=== PATIENT | female | born 1985 | race African-American/Black ===

== ENCOUNTER 2017-03-11 00:31 | Emergency (ER) | payer MEDICAID ==
[2017-03-11 00:37] VITALS: BP 112/73
[2017-03-11] MEDS ORDERED: ONDANSETRON 4 MG TAB.RAPDIS PO ONE (01:10)
[2017-03-11] MEDS ORDERED: ONDANSETRON ODT 4 MG TAB (6 TAB/ER DISP) PO PRN (01:10)
--- NOTE | 2017-03-11 01:14 | ER Document Report ---
ED General - General Chief Complaint: Flu Symptoms Stated Complaint: FLU LIKE SYMPTOMS Time Seen by Provider: 03/11/17 00:55 TRAVEL OUTSIDE OF THE [place] IN LAST 30 DAYS: No - HPI Patient complains to provider of: Nausea myalgias feeling hot and cold Notes: Patient coming in for the above-stated symptoms flulike symptoms ongoing for the past 3 days. Patient states no sick contacts. Patient also states she is having diarrhea. Patient denies getting a flu shot this year. Patient is shivering rocking back and forth however does have a conversation with family at bedside and is laughing. Patient looks to be no obvious distress. Denies fevers at home - Related Data Allergies/Adverse Reactions: aspirin Allergy (Verified 03/11/17 00:39) Past Medical History - Social History Smoking Status: Unknown if Ever Smoked Family History: Reviewed & Not Pertinent Patient has suicidal ideation: No Patient has homicidal ideation: No Renal/ Medical History: Denies: Hx Peritoneal Dialysis Review of Systems - Review of Systems Constitutional: Chills EENT: No symptoms reported Cardiovascular: No symptoms reported Respiratory: No symptoms reported Gastrointestinal: Diarrhea, Nausea, Vomiting Genitourinary: No symptoms reported Female Genitourinary: No symptoms reported Musculoskeletal: Muscle pain Skin: No symptoms reported Hematologic/Lymphatic: No symptoms reported Neurological/Psychological: No symptoms reported -: Yes All other systems reviewed and negative Physical Exam - Vital signs Vitals: Temp Pulse Resp BP Pulse Ox 97.8 F 80 18 112/73 100 03/11/17 00:33 03/11/17 00:33 03/11/17 00:33 03/11/17 00:33 03/11/17 00:33 Interpretation: Normal - General General appearance: Appears well, Alert - HEENT Head: Normocephalic, Atraumatic Eyes: Normal Pupils: PERRL - Respiratory Respiratory status: No respiratory distress Chest status: Nontender Breath sounds: Normal Chest palpation: Normal - Cardiovascular Rhythm: Regular Heart sounds: Normal auscultation Murmur: No - Abdominal Inspection: Normal Distension: No distension Bowel sounds: Normal Tenderness: Nontender Organomegaly: No organomegaly - Back Back: Normal, Nontender - Extremities General upper extremity: Normal inspection, Nontender, Normal color, Normal ROM , Normal temperature General lower extremity: Normal inspection, Nontender, Normal color, Normal ROM , Normal temperature, Normal weight bearing. No: Viridiana's sign - Neurological Neuro grossly intact: Yes Cognition: Normal Orientation: AAOx4 [place] Coma Scale Eye Opening: Spontaneous [place] Coma Scale Verbal: Oriented [place] Coma Scale Motor: Obeys Commands [place] Coma Scale Total: 15 Speech: Normal Motor strength normal: LUE, RUE, LLE, RLE Sensory: Normal - Psychological Associated symptoms: Normal affect, Normal mood - Skin Skin Temperature: Warm Skin Moisture: Dry Skin Color: Normal Course - Re-evaluation Re-evalutation: 03/11/17 02:25 Patient presents with viral-like illness in no obvious distress. Patient was given symptomatic treatment patient was encouraged follow-up primary care physician return to ER symptoms worsen. - Vital Signs Vital signs: Temp Pulse Resp BP Pulse Ox 97.8 F 80 18 112/73 100 03/11/17 00:33 03/11/17 00:33 03/11/17 00:33 03/11/17 00:33 03/11/17 00:33 Discharge - Discharge Clinical Impression: Flu-like symptoms Disposition: HOME, SELF-CARE Instructions: Gastritis ([facility]), Gastroenteritis (adult) ([facility]), Influenza ([facility]) [id number] Additional Instructions: Your symptoms are consistent with a viral illness possibly influenza. Take Tylenol Motrin as needed for pain and fever control. I recommend starting omeprazole for your gastritis. Take Zofran and Phenergan for your nausea. Clear liquid diet for the next 1224 hrs. and advance as tolerated. Return to ER symptoms worsen. Follow-up with her primary care physician in 3-5 days. Prescriptions: Omeprazole 20 mg PO DAILY #30 capsule. Ondansetron [Zofran Odt] 4 mg PO Q6 PRN #30 tab.rapdis PRN Reason: For Nausea/Vomiting Promethazine HCl [Phenergan 25 mg Tablet] 25 mg PO Q6 #30 tablet Forms: Return to Work
== END 2017-03-11 01:21 | disposition home or self-care (01) ==
LOC: ER 00:31
DX: M79.1 Myalgia (principal); R19.7 Diarrhea, unspecified; R11.0 Nausea; R68.83 Chills (without fever); R11.2 Nausea with vomiting, unspecified
CPT/HCPCS: 99283; S0119

== ENCOUNTER 2017-03-11 04:07 | Emergency (ER) | payer MEDICAID ==
[2017-03-11] MEDS ORDERED: NORMAL SALINE 1000 ML 1,000 ML IV ONE (05:17)
[2017-03-11] MEDS ORDERED: DIPHENHYDRAMINE HCL 50 MG/ML VIAL IV ONE (05:17)
--- NOTE | 2017-03-11 05:19 | ER Document Report ---
HPI - HPI Patient complains to provider of: Vomiting and diarrhea Onset: Other - 3 days Onset/Duration: Persistent Quality of pain: Achy Pain Level: 5 Context: Patient presents complaining of nausea vomiting diarrhea over the past 3 days. Patient states she is vomited once today but feels nauseated. Patient does complain of some abdominal cramping. Patient denies any urinary symptoms. Patient was here earlier today and given nausea medication. Patient states that shortly after leaving she became nauseated and vomited an additional time. Associated Symptoms: Diarrhea, Nausea, Vomiting. denies: Fever Exacerbated by: Denies Relieved by: Denies Similar symptoms previously: No Recently seen / treated by doctor: Yes - ROS ROS below otherwise negative: Yes Systems Reviewed and Negative: Yes All other systems reviewed and negative - CONSTITUTIONAL Constitutional: DENIES: Fever, Chills - CARDIOVASCULAR Cardiovascular: DENIES: Chest pain - RESPIRATORY Respiratory: DENIES: Trouble Breathing, Coughing - GASTROINTESTINAL Gastrointestinal: REPORTS: Abdominal Pain, Nausea, Patient vomiting, Diarrhea. DENIES: Black / Bloody Stools - URINARY Urinary: DENIES: Dysuria - REPRODUCTIVE Reproductive: DENIES: : - MUSCULOSKELETAL Musculoskeletal: DENIES: Back Pain - DERM Skin Color: Normal Skin Problems: None Past Medical History - General Information source: Patient - Social History Smoking Status: Current Every Day Smoker Frequency of alcohol use: None Drug Abuse: None Occupation: Sales, foodservice Lives with: Family Family History: Reviewed & Not Pertinent Renal/ Medical History: Denies: Hx Peritoneal Dialysis GI Medical History: Reports: Hx Gastritis Surgical Hx: Negative Vertical Provider Document - CONSTITUTIONAL Agree With Documented VS: Yes Exam Limitations: No Limitations General Appearance: WD/WN, No Apparent Distress Notes: Patient restless, pacing in room, states this helps with her nausea - INFECTION CONTROL TRAVEL OUTSIDE OF THE [place] IN LAST 30 DAYS: No - HEENT HEENT: Atraumatic, Normal ENT Exam, Normocephalic - NECK Neck: Normal Inspection, Supple - RESPIRATORY Respiratory: Breath Sounds Normal, No Respiratory Distress O2 Sat by Pulse Oximetry: 100 - CARDIOVASCULAR Cardiovascular: Regular Rate, Regular Rhythm, No Murmur - GI/ABDOMEN Gastrointestinal: Abdomen Soft, Abdomen Tender - LLQ, No Organomegaly, Normal Bowel Sounds - BACK Back: Normal Inspection. negative: CVA Tenderness-Right, CVA Tenderness-Left - MUSCULOSKELETAL/EXTREMETIES Musculoskeletal/Extremeties: DEIDRE, FROM - NEURO Level of Consciousness: Awake, Alert, Appropriate Motor/Sensory: No Motor Deficit - DERM Integumentary: Warm, Dry Course - Re-evaluation Re-evalutation: 03/11/17 06:37 IV fluids infusing, patient denies any nausea at this time. Patient reports that she is feeling much improved. 03/11/17 07:31 Patient sleeping, arouses easily to voice. Abdomen soft, nontender. No vomiting. Patient encouraged to get prescriptions that she was prescribed earlier this morning filled and take as directed. - Vital Signs Vital signs: Temp Pulse Resp BP Pulse Ox 97.9 F 63 18 143/115 H 100 03/11/17 04:12 03/11/17 04:12 03/11/17 04:12 03/11/17 04:12 03/11/17 04:12 - Laboratory Result Diagrams: 03/11/17 06:22 03/11/17 06:22 Laboratory results interpreted by me: 03/11/17 07:15 Labs- Entire Visit 03/11/17 03/11/17 03/11/17 06:22 06:22 06:22 WBC 7.8 RBC 3.97 Hgb 12.2 Hct 35.7 L MCV 90 MCH 30.7 MCHC 34.1 RDW 12.5 Plt Count 230 Seg Neutrophils % 79.7 H Lymphocytes % 15.3 Monocytes % 4.3 Eosinophils % 0.3 Basophils % 0.4 Absolute Neutrophils 6.2 Absolute Lymphocytes 1.2 Absolute Monocytes 0.3 Absolute Eosinophils 0.0 Absolute Basophils 0.0 Sodium 142.9 Potassium 3.9 Chloride 109 H Carbon Dioxide 23 Anion Gap 11 BUN 10 Creatinine 0.82 Est GFR ( Amer) > 60 Est GFR (Non-Af Amer) > 60 Glucose 115 H Calcium 9.7 Total Bilirubin 0.8 Direct Bilirubin 0.2 Neonat Total Bilirubin Not Reportable Neonat Direct Bilirubin Not Reportable Neonat Indirect Bili Not Reportable AST 21 ALT 28 Alkaline Phosphatase 56 Total Protein 7.1 Albumin 4.4 Serum HCG, Qual NEGATIVE Urine Color Urine Appearance Urine pH Ur Specific [place] Urine Protein Urine Glucose (UA) Urine Ketones Urine Blood Urine Nitrite Urine Bilirubin Urine Urobilinogen Ur Leukocyte Esterase Urine WBC (Auto) Urine RBC (Auto) Urine Bacteria (Auto) Squamous Epi Cells Auto Urine Ascorbic Acid 03/11/17 06:38 WBC RBC Hgb Hct MCV MCH MCHC RDW Plt Count Seg Neutrophils % Lymphocytes % Monocytes % Eosinophils % Basophils % Absolute Neutrophils Absolute Lymphocytes Absolute Monocytes Absolute Eosinophils Absolute Basophils Sodium Potassium Chloride Carbon Dioxide Anion Gap BUN Creatinine Est GFR ( Amer) Est GFR (Non-Af Amer) Glucose Calcium Total Bilirubin Direct Bilirubin Neonat Total Bilirubin Neonat Direct Bilirubin Neonat Indirect Bili AST ALT Alkaline Phosphatase Total Protein Albumin Serum HCG, Qual Urine Color YELLOW Urine Appearance CLEAR Urine pH 9.0 Ur Specific [place] 1.006 Urine Protein NEGATIVE Urine Glucose (UA) NEGATIVE Urine Ketones TRACE H Urine Blood NEGATIVE Urine Nitrite NEGATIVE Urine Bilirubin NEGATIVE Urine Urobilinogen NEGATIVE Ur Leukocyte Esterase NEGATIVE Urine WBC (Auto) 0 Urine RBC (Auto) 1 Urine Bacteria (Auto) TRACE Squamous Epi Cells Auto 3 Urine Ascorbic Acid NEGATIVE Discharge - Discharge Clinical Impression: Nausea vomiting and diarrhea Condition: Stable Disposition: HOME, SELF-CARE Additional Instructions: Return immediately for any new or worsening symptoms Followup with your primary care provider, call tomorrow to make a followup appointment VOMITING: Vomiting (or nausea without vomiting) can be caused by many other different problems. It can mean that something's wrong with the stomach, such as ulcers or inflammation or the intestinal tract, such as appendicitis. But it can also be a symptom of a problem that has nothing to do with the stomach or intestines. Vomiting is common with severe headaches, earaches, tonsillitis, and kidney infections, etc. We see it with pneumonia or heart attacks. Drugs can cause nausea and vomiting. Many abdominal problems cause vomiting; for example, gallstones, kidney stones, pancreatitis, and intestinal obstruction ( blocked bowels). In most cases, curing the vomiting depends on fixing the problem that caused it. For temporary relief, we may use an anti-nausea medicine. For home use, we can prescribe suppositories, chewable pills, pills that dissolve in the mouth, or liquid anti-nausea drugs. If the vomiting seems to be caused by a problem in the stomach, acid-suppressing drugs may be prescribed as well. It's important to avoid dehydration. Sip small amounts of clear liquids ( soft drinks, tea, broth, etc) . Try to take fluids frequently even if you are vomiting to prevent dehydration. Take increasing amounts of fluid and when liquids are being consumed successfully, advance to small amounts of bland food (toast, soups, mashed potatoes, etc.) until you are able to resume a regular diet. Avoid aspirin, tobacco, and alcohol. If the vomiting worsens, if the problem that's making you vomit worsens, or if there's evidence of bleeding in the stomach (such as black, tarry stool, or bloody or black vomit), you should return immediately. Also, return if abdominal pain worsens or becomes localized to one area or you develop high fever. Call your doctor if you aren't improved in 24 hours. DIARRHEA, NON-SPECIFIC: Diarrhea means frequent, watery stools. There are many causes. Any problem that keeps the intestinal tract from absorbing water from the stool can lead to diarrhea. A sudden new diarrhea problem is usually caused by a virus, food sensitivity, toxic bacteria, or drugs. In this case, we expect the problem to go away soon. Testing is done only if you seem seriously ill from the diarrhea. If you have chronic diarrhea, or diarrhea that keeps coming back, we need to find out why. Chronic diarrhea can be due to inflammation of the bowels such as Crohn's disease or ulcerative colitis, food sensitivity such as intolerance to lactose or wheat protein, irritable bowel syndrome, and other problems. If your diarrhea is a significant problem but it's not clear why you have it, we' ll refer you to a specialist for further testing. During an episode of diarrhea, drink small amounts (two to six ounces) of clear liquids (soft drinks, sport drinks, herb teas, broth, etc). Take fluids frequently to prevent dehydration. It's usually not a problem to take mild anti- diarrhea medication such as Kaopectate or Pepto-Bismol. As the diarrhea eases, advance to small amounts of bland food (mashed potato, toast) for 24 hours. Call the physician if blood appears in your vomit or stool, if vomiting lasts longer than 24 hours, if the abdominal pain worsens or becomes localized to one area, if you develop high fever, or if you become lightheaded and weak. VIRAL SYNDROME: The physician has diagnosed a viral infection. Viruses not only cause "colds," but can cause many different symptoms including generalized aching, fever, headache, cough, diarrhea, nausea, vomiting, and fatigue. The treatment, for the most part, is simply relief of symptoms. This means that antibiotics are usually not given. Rest, fluids, pain medications and, occasionally, medication for the specific symptoms that are most bothersome will be prescribed. Use good handwashing to avoid passing the virus to others. Shared toys should be cleaned with disinfectant. Clean the toilets, sinks, and counter surfaces in bathrooms. Launder clothing in hot water. Contact the physician if you develop any new or unusual symptoms such as severe headache, stiff neck, high fever, chest pain, productive cough, or shortness of breath. You should be rechecked if you don't see marked improvement within seven to 10 days. INTRAVENOUS (I V) FLUIDS: As part of your care today, you received intravenous (IV) fluids. IV fluids are administered to patients who are dehydrated or to those who have certain chemical (electrolyte) abnormalities that need correcting. ANTINAUSEA MEDICATION: You have been given a medication to suppress nausea and vomiting. This type of medication can be given as a shot, pill, or suppository. It will usually last for many hours. Pills and shots usually last six to eight hours. For the typical illness, only one or two doses of the medication may be necessary. Mild lightheadedness may occur. This type of medicine can cause drowsiness. Do not drive or operate dangerous machinery while under its influence. Do not mix with alcohol. See your doctor at once if you have muscle spasms or tightness, or uncontrollable motions (particularly of the neck, mouth, or jaw). Persistent vomiting or severe lightheadedness should also be evaluated by the physician. FOLLOW-UP CARE: If you have been referred to a physician for follow-up care, call the physician s office for an appointment as you were instructed or within the next two days. If you experience worsening or a significant change in your symptoms, notify the physician immediately or return to the Emergency Department at any time for re-evaluation. Forms: Return to Work Referrals: [facility] [Provider Group] - Follow up tomorrow
[2017-03-11 06:36] LABS: ABSOLUTE LYMPHOCYTES (AUTO) 1.2 10^3/uL (0.5-4.7); ABSOLUTE MONOCYTES (AUTO) 0.3 10^3/uL (0.1-1.4); ABSOLUTE NEUT (AUTO) 6.2 10^3/uL (1.7-8.2); BASOPHILS % (AUTO) 0.4 % (0-2); EOSINOPHILS % (AUTO) 0.3 % (0-6); HEMATOCRIT 35.7 % (36.0-47.0); HEMOGLOBIN 12.2 g/dL (12.0-15.5); LYMPHOCYTES % (AUTO) 15.3 % (13-45); MEAN CORPUSCULAR HEMOGLOBIN 30.7 pg (27.0-33.4); MEAN CORPUSCULAR HGB CONC 34.1 g/dL (32.0-36.0); MEAN CORPUSCULAR VOLUME 90 fl (80-97); MONOCYTES % (AUTO) 4.3 % (3-13); PLATELET COUNT 230 10^3/uL (150-450); RED BLOOD COUNT 3.97 10^6/uL (3.72-5.28); RED CELL DISTRIBUTION WIDTH 12.5 % (11.5-14.0); SEGMENTED NEUTROPHILS % (AUTO) 79.7 % (42-78); TOTAL CELLS COUNTED % (AUTO) 100 %; WHITE BLOOD COUNT 7.8 10^3/uL (4.0-10.5)
[2017-03-11 06:59] LABS: BLOOD UREA NITROGEN 10 mg/dL (7-20); CALCIUM 9.7 mg/dL (8.4-10.2); GLUCOSE 115 mg/dL (75-110)
[2017-03-11 07:00] LABS: ALANINE AMINOTRANSFERASE 28 U/L (9-52); ALBUMIN 4.4 g/dL (3.5-5.0); ALKALINE PHOSPHATASE 56 U/L (38-126); ANION GAP 11 (5-19); ASPARTATE AMINO TRANSFERASE 21 U/L (14-36); BILIRUBIN,DIRECT 0.2 mg/dL (0.0-0.4); BILIRUBIN,TOTAL 0.8 mg/dL (0.2-1.3); CARBON DIOXIDE 23 mmol/L (22-30); CHLORIDE 109 mmol/L (98-107); POTASSIUM 3.9 mmol/L (3.6-5.0); SODIUM 142.9 mmol/L (137-145); TOTAL PROTEIN 7.1 g/dL (6.3-8.2)
[2017-03-11 07:04] LABS: APPEARANCE,URINE CLEAR; BILIRUBIN,URINE NEGATIVE (NEGATIVE); COLOR,URINE YELLOW; GLUCOSE, URINE NEGATIVE (NEGATIVE); KETONES,URINE TRACE mg/dL (NEGATIVE); LEUKOCYTE ESTERASE,URINE NEGATIVE (NEGATIVE); NITRITE,URINE NEGATIVE (NEGATIVE); PROTEIN,URINE NEGATIVE (NEGATIVE); URINE SPECIFIC GRAVITY 1.006; UROBILINOGEN,URINE NEGATIVE mg/dL (<2.0)
[2017-03-11 07:51] VITALS: BP 95/53
== END 2017-03-11 07:51 | disposition home or self-care (01) ==
LOC: ER 04:07
DX: R11.2 Nausea with vomiting, unspecified (principal); R19.7 Diarrhea, unspecified; R10.9 Unspecified abdominal pain; R45.1 Restlessness and agitation; F17.200 Nicotine dependence, unspecified, uncomplicated; Z87.19 Personal history of other diseases of the digestive system
CPT/HCPCS: 99283; 96374; 36415; 84703; 85025; 80053; 81001; J1200; J7030

== ENCOUNTER 2017-05-29 06:48 | Emergency (ER) | payer MEDICAID ==
[2017-05-29] MEDS ORDERED: METOCLOPRAMIDE HCL 10 MG TABLET PO ONE (07:24)
[2017-05-29 07:58] LABS: ABSOLUTE EOSINOPHILS # (AUTO) 0.1 10^3/uL (0.0-0.6); ABSOLUTE LYMPHOCYTES (AUTO) 1.4 10^3/uL (0.5-4.7); ABSOLUTE MONOCYTES (AUTO) 0.5 10^3/uL (0.1-1.4); ABSOLUTE NEUT (AUTO) 8.2 10^3/uL (1.7-8.2); BASOPHILS % (AUTO) 0.4 % (0-2); EOSINOPHILS % (AUTO) 0.7 % (0-6); HEMATOCRIT 39.3 % (36.0-47.0); HEMOGLOBIN 13.3 g/dL (12.0-15.5); LYMPHOCYTES % (AUTO) 13.4 % (13-45); MEAN CORPUSCULAR HGB CONC 33.7 g/dL (32.0-36.0); MEAN CORPUSCULAR VOLUME 92 fl (80-97); PLATELET COUNT 212 10^3/uL (150-450); RED BLOOD COUNT 4.28 10^6/uL (3.72-5.28); RED CELL DISTRIBUTION WIDTH 13.6 % (11.5-14.0); SEGMENTED NEUTROPHILS % (AUTO) 80.5 % (42-78); TOTAL CELLS COUNTED % (AUTO) 100 %; WHITE BLOOD COUNT 10.2 10^3/uL (4.0-10.5)
[2017-05-29 08:05] LABS: APPEARANCE,URINE CLEAR; BILIRUBIN,URINE NEGATIVE (NEGATIVE); COLOR,URINE YELLOW; GLUCOSE, URINE NEGATIVE (NEGATIVE); KETONES,URINE 20 mg/dL (NEGATIVE); LEUKOCYTE ESTERASE,URINE NEGATIVE (NEGATIVE); NITRITE,URINE NEGATIVE (NEGATIVE); PROTEIN,URINE NEGATIVE (NEGATIVE); URINE SPECIFIC GRAVITY 1.019; UROBILINOGEN,URINE NEGATIVE mg/dL (<2.0)
[2017-05-29 08:35] LABS: ALANINE AMINOTRANSFERASE 38 U/L (9-52); ALBUMIN 4.2 g/dL (3.5-5.0); ALKALINE PHOSPHATASE 58 U/L (38-126); ANION GAP 7 (5-19); ASPARTATE AMINO TRANSFERASE 24 U/L (14-36); BILIRUBIN,DIRECT 0.1 mg/dL (0.0-0.4); BILIRUBIN,TOTAL 0.7 mg/dL (0.2-1.3); BLOOD UREA NITROGEN 9 mg/dL (7-20); CALCIUM 9.8 mg/dL (8.4-10.2); CARBON DIOXIDE 32 mmol/L (22-30); CHLORIDE 106 mmol/L (98-107); GLUCOSE 109 mg/dL (75-110); LIPASE 75.3 U/L (23-300); SODIUM 145.1 mmol/L (137-145); TOTAL PROTEIN 6.9 g/dL (6.3-8.2)
[2017-05-29 08:53] LABS: URINE AMPHETAMINES SCREEN NEGATIVE; URINE BARBITURATES SCREEN NEGATIVE; URINE BENZODIAZEPINES SCREEN NEGATIVE; URINE COCAINE SCREEN NEGATIVE; URINE MARIJUANA (THC) SCREEN UNCONFIRMED POSITIVE; URINE METHADONE SCREEN NEGATIVE; URINE PHENCYCLIDINE SCREEN NEGATIVE
--- NOTE | 2017-05-29 09:36 | ER Document Report ---
ED General - General Chief Complaint: Nausea Stated Complaint: NAUSEA Time Seen by Provider: 05/29/17 07:09 Mode of Arrival: Ambulatory Information source: Patient Notes: 31 yr old female presents with complaints of abd cramping, nausea vomiting and diarrhea. pt notes she had phenergan for nausea at home but didnt know if she should take it. notes symptoms just started, denies any fevers or chills. TRAVEL OUTSIDE OF THE [place] IN LAST 30 DAYS: No - HPI Onset: Just prior to arrival Onset/Duration: Sudden Quality of pain: Cramping Severity: Mild Pain Level: 1 Associated symptoms: Diarrhea, Nausea, Vomiting Exacerbated by: Denies Relieved by: Denies Similar symptoms previously: No Recently seen / treated by doctor: No - Related Data Allergies/Adverse Reactions: aspirin Allergy (Verified 03/11/17 00:39) Past Medical History - Social History Smoking Status: Current Every Day Smoker Cigarette use (# per day): Yes Chew tobacco use (# tins/day): No Smoking Education Provided: No Frequency of alcohol use: None Drug Abuse: Marijuana Family History: Reviewed & Not Pertinent Patient has suicidal ideation: No Patient has homicidal ideation: No Renal/ Medical History: Denies: Hx Peritoneal Dialysis GI Medical History: Reports: Hx Gastritis Past Surgical History: Reports: Hx Gynecologic Surgery - 3 D&Cs Review of Systems - Review of Systems Notes: REVIEW OF SYSTEMS: CONSTITUTIONAL : Denies fever, chills, or sweats. Denies recent illness. EENT: Denies eye, ear, throat, or mouth pain or symptoms. Denies nasal or sinus congestion or discharge. Denies throat, tongue, or mouth swelling or difficulty swallowing. CARDIOVASCULAR: Denies chest pain. Denies palpitations or racing or irregular heart beat. Denies ankle edema. RESPIRATORY: Denies cough, cold, or chest congestion. Denies shortness of breath, difficulty breathing, or wheezing. GASTROINTESTINAL: Admits to abdominal cramping nausea vomiting diarrhea GENITOURINARY: Denies difficulty urinating, painful urination, burning, frequency, blood in urine, or discharge. FEMALE GENITOURINARY: Denies vaginal bleeding, heavy or abnormal periods, irregular periods. Denies vaginal discharge or odor. MUSCULOSKELETAL: Denies back or neck pain or stiffness. Denies joint pain or swelling. SKIN: Denies rash, lesions or sores. HEMATOLOGIC : Denies easy bruising or bleeding. LYMPHATIC: Denies swollen, enlarged glands. NEUROLOGICAL: Denies confusion or altered mental status. Denies passing out or loss of consciousness. Denies dizziness or lightheadedness. Denies headache. Denies weakness or paralysis or loss of use of either side. Denies problems with gait or speech. Denies sensory loss, numbness, or tingling. Denies seizures. PSYCHIATRIC: Denies anxiety or stress. Denies depression, suicidal ideation, or homicidal ideation. ALL OTHER SYSTEMS REVIEWED AND NEGATIVE. PHYSICAL EXAMINATION: GENERAL: Well-appearing, well-nourished and in no acute distress. HEAD: Atraumatic, normocephalic. EYES: Pupils equal round and reactive to light, extraocular movements intact, conjunctiva are normal. ENT: Nares patent, oropharynx clear without exudates. Moist mucous membranes. NECK: Normal range of motion, supple without lymphadenopathy LUNGS: Breath sounds clear to auscultation bilaterally and equal. No wheezes rales or rhonchi. HEART: Regular rate and rhythm without murmurs ABDOMEN: Soft, nontender, nondistended abdomen. No guarding, no rebound. No masses appreciated. Female : deferred Musculoskeletal: Normal range of motion, no pitting or edema. No cyanosis. NEUROLOGICAL: Cranial nerves grossly intact. Normal speech, normal gait. Normal sensory, motor exams PSYCH: Normal mood, normal affect. SKIN: Warm, Dry, normal turgor, no rashes or lesions noted. Dictation was performed using [employer] voice recognition software Physical Exam - Vital signs Vitals: Temp Pulse Resp BP Pulse Ox 97.9 F 69 14 102/61 100 05/29/17 06:49 05/29/17 06:49 05/29/17 06:49 05/29/17 06:49 05/29/17 06:49 Course - Re-evaluation Re-evalutation: 05/29/17 11:29 Patient lab work noted no significant abnormality, she was given Reglan and on reevaluation is sleeping comfortably states her symptoms have completely resolved and she wishes to go home. Patient will be given a work excuse and has been given very strict return precautions After performing a Medical Screening Examination, I estimate there is LOW risk for ACUTE APPENDICITIS, BOWEL OBSTRUCTION, ACUTE CHOLECYSTITIS, PERFORATED DIVERTICULITIS, INCARCERATED HERNIA, PANCREATITIS, PELVIC INFLAMMATORY DISEASE, PERFORATED ULCER, ECTOPIC , or TUBO-OVARIAN ABSCESS, thus I consider the discharge disposition reasonable. Also, there is no evidence or peritonitis , sepsis, or toxicity. I have reevaluated this patient multiple times and no significant life threatening changes are noted. The patient and I have discussed the diagnosis and risks, and we agree with discharging home with close follow-up with the understanding that symptoms and presentations can change. We also discussed returning to the Emergency Department immediately if new or worsening symptoms occur. We have discussed the symptoms which are most concerning (e.g., bloody stool, fever, changing or worsening pain, vomiting) that necessitate immediate return. - Vital Signs Vital signs: Temp Pulse Resp BP Pulse Ox 98.4 F 55 L 18 96/56 L 99 05/29/17 09:39 05/29/17 09:39 05/29/17 09:39 05/29/17 09:39 05/29/17 09:39 - Laboratory Result Diagrams: 05/29/17 07:40 05/29/17 07:40 Laboratory results interpreted by me: 05/29/17 05/29/17 05/29/17 07:40 07:40 07:40 Seg Neutrophils % 80.5 H Sodium 145.1 H Carbon Dioxide 32 H Urine Ketones 20 H Discharge - Discharge Clinical Impression: Nausea vomiting and diarrhea Condition: Stable Disposition: HOME, SELF-CARE Instructions: Vomiting ([facility]) Additional Instructions: Follow up with your physician tomorrow for further care or return to the ED IMMEDIATELY if symptoms worsen or new concerns occur. If you cannot afford to follow up with your primary care physician a list of low cost clinics have been provided at the end of your discharge papers as well. Prescriptions: Metoclopramide HCl [Reglan 10 mg Tablet] 1 - 2 tab PO Q6 #14 tablet Forms: Return to Work
[2017-05-29 09:41] VITALS: BP 96/56
== END 2017-05-29 09:41 | disposition home or self-care (01) ==
LOC: ER 06:48
DX: R11.2 Nausea with vomiting, unspecified (principal); R19.7 Diarrhea, unspecified; R10.9 Unspecified abdominal pain; F17.210 Nicotine dependence, cigarettes, uncomplicated
CPT/HCPCS: 99283; 36415; 83690; 85025; 81025; 80053; 81001; 80307; J3490

== ENCOUNTER 2017-08-01 21:39 | Emergency (ER) | payer MEDICAID ==
[2017-08-02] MEDS ORDERED: HYDROXYZINE PAMOATE 50 MG CAPSULE PO ONE
[2017-08-02] MEDS ORDERED: SUCRALFATE 1 GM TABLET PO ONE
[2017-08-02] MEDS ORDERED: NORMAL SALINE 1000 ML 1,000 ML IV ONE (00:01)
--- NOTE | 2017-08-02 00:02 | ER Document Report ---
ED General - General Chief Complaint: Dizziness Stated Complaint: DIZZINESS Time Seen by Provider: 08/01/17 23:26 Notes: Patient is a 31-year-old female who comes emergency department for chief complaint of feeling weak and lightheaded all day, she states that she has intermittent nausea and tingling sensation over her whole body as well. She reports pain currently nauseated. She denies vomiting, fever, chest pain, difficulty breathing, passing out. Past medical history of gastritis, had an endoscopy and colonoscopy in the past, denies any surgeries, denies any medical history otherwise. She smokes, denies alcohol or recreational drugs. TRAVEL OUTSIDE OF THE [place] IN LAST 30 DAYS: No - Related Data Allergies/Adverse Reactions: aspirin Allergy (Verified 03/11/17 00:39) Past Medical History - General Information source: Patient - Social History Smoking Status: Current Every Day Smoker Smoking Education Provided: Yes - <3 min Frequency of alcohol use: None Drug Abuse: None Lives with: Family Family History: Reviewed & Not Pertinent Renal/ Medical History: Denies: Hx Peritoneal Dialysis GI Medical History: Reports: Hx Gastritis Psychiatric Medical History: Reports: Hx Anxiety Past Surgical History: Reports: Hx Gynecologic Surgery - 3 D&Cs - Immunizations Hx Diphtheria, Pertussis, Tetanus Vaccination: Yes Review of Systems - Review of Systems Constitutional: See HPI EENT: No symptoms reported Cardiovascular: No symptoms reported Respiratory: See HPI Gastrointestinal: No symptoms reported Genitourinary: No symptoms reported Female Genitourinary: No symptoms reported Musculoskeletal: No symptoms reported Skin: No symptoms reported Hematologic/Lymphatic: No symptoms reported Neurological/Psychological: No symptoms reported Physical Exam - Vital signs Vitals: Temp Pulse Resp BP Pulse Ox 98.8 F 66 18 123/65 100 08/01/17 22:01 08/01/17 22:01 08/01/17 22:01 08/01/17 22:01 08/01/17 22:01 - Notes Notes: GENERAL: Sleeping and easily aroused. No acute distress. HEAD: Normocephalic, atraumatic. EYES: Pupils equal, round, and reactive to light. Extraocular movements intact. ENT: Oral mucosa moist, tongue midline. NECK: Full range of motion. Supple. Trachea midline. LUNGS: Clear to auscultation bilaterally, no wheezes, rales, or rhonchi. No respiratory distress. HEART: Regular rate and rhythm. No murmur ABDOMEN: Soft, minimal tenderness in the upper abdomen generally, lower abdomen nontender. Non-distended. Bowel sounds present in all 4 quadrants. EXTREMITIES: Moves all 4 extremities spontaneously. No edema, normal radial and dorsalis pedis pulses bilaterally. No cyanosis. BACK: no cervical, thoracic, lumbar midline tenderness. No saddle anesthesia, normal distal neurovascular exam. NEUROLOGICAL: Alert and oriented x3. Normal speech. [cranial nerves II through XII grossly intact]. PSYCH: Normal affect, normal mood. Patient becomes anxious and agitated while giving history and answering questions but she can be calmed down. SKIN: Warm, dry, normal turgor. No rashes or lesions noted. Course - Re-evaluation Re-evalutation: Patient sleeping and easily aroused, well-appearing although giving history she becomes anxious and agitated. She states that she had trouble breathing earlier although she initially this was not reported. Chest x-ray performed and unremarkable. Lungs clear. No hypoxia. CBC shows mild leukocytosis, patient did have an episode of vomiting, she does have mild upper abdominal tenderness on exam, after treatment with Carafate and Reglan her symptoms resolved. Patient not tolerating food without any difficulty. No epigastric pain or right upper quadrant pain on reevaluation. Appears to be gastritis, low suspicion of acute abdomen. Urinalysis unremarkable. On reevaluation patient smiling, states she feels good, states she is ready to leave. Provided with medications, discussed follow-up, discussed return precautions, discussed workup. Patient states satisfaction and agreement with plan. - Vital Signs Vital signs: Temp Pulse Resp BP Pulse Ox 98.5 F 65 18 99/58 L 98 08/02/17 02:05 08/02/17 02:05 08/02/17 02:05 08/02/17 02:05 08/02/17 02:05 - Laboratory Result Diagrams: 08/01/17 23:59 08/01/17 23:59 Laboratory results interpreted by me: 08/01/17 23:59 WBC 12.2 H Seg Neutrophils % 82.8 H Lymphocytes % 11.6 L Absolute Neutrophils 10.1 H Discharge - Discharge Clinical Impression: Weakness Vomiting Qualifiers: Vomiting type: unspecified Vomiting Intractability: non-intractable Nausea presence: with nausea Qualified Code(s): R11.2 - Nausea with vomiting, unspecified Condition: Stable Disposition: HOME, SELF-CARE Additional Instructions: Your examination and workup are most consistent with gastritis but no additional abnormalities were concerning findings are noted tonight. I recommend that you take the Carafate and famotidine as prescribed to prevent any worsening symptoms, stop smoking, avoid spicy foods, caffeine, NSAIDs, alcohol. Take Phenergan if needed for nausea. Follow-up with primary care. Return if you worsen including vomiting that is not controlled, vomiting blood, severe abdominal pain, black stools, or any other concerning or worsening symptoms. Prescriptions: Famotidine [Pepcid 20 mg Tablet] 20 mg PO BID #20 tablet Promethazine HCl [Phenergan 25 mg Tablet] 1 - 2 tab PO Q6H PRN #15 tablet PRN Reason: Sucralfate [Carafate 1 gm Tablet] 1 gm PO QID #20 tablet
[2017-08-02 00:17] LABS: ABSOLUTE BASOPHILS # (AUTO) 0.1 10^3/uL (0.0-0.2); ABSOLUTE EOSINOPHILS # (AUTO) 0.1 10^3/uL (0.0-0.6); ABSOLUTE LYMPHOCYTES (AUTO) 1.4 10^3/uL (0.5-4.7); ABSOLUTE MONOCYTES (AUTO) 0.5 10^3/uL (0.1-1.4); ABSOLUTE NEUT (AUTO) 10.1 10^3/uL (1.7-8.2); BASOPHILS % (AUTO) 0.6 % (0-2); EOSINOPHILS % (AUTO) 0.7 % (0-6); HEMATOCRIT 40.5 % (36.0-47.0); HEMOGLOBIN 13.5 g/dL (12.0-15.5); LYMPHOCYTES % (AUTO) 11.6 % (13-45); MEAN CORPUSCULAR HEMOGLOBIN 30.6 pg (27.0-33.4); MEAN CORPUSCULAR HGB CONC 33.4 g/dL (32.0-36.0); MEAN CORPUSCULAR VOLUME 92 fl (80-97); MONOCYTES % (AUTO) 4.3 % (3-13); PLATELET COUNT 224 10^3/uL (150-450); RED BLOOD COUNT 4.42 10^6/uL (3.72-5.28); RED CELL DISTRIBUTION WIDTH 12.9 % (11.5-14.0); SEGMENTED NEUTROPHILS % (AUTO) 82.8 % (42-78); TOTAL CELLS COUNTED % (AUTO) 100 %; WHITE BLOOD COUNT 12.2 10^3/uL (4.0-10.5)
[2017-08-02 00:28] LABS: ALANINE AMINOTRANSFERASE 28 U/L (9-52); ALBUMIN 4.8 g/dL (3.5-5.0); ALKALINE PHOSPHATASE 66 U/L (38-126); ANION GAP 13 (5-19); ASPARTATE AMINO TRANSFERASE 25 U/L (14-36); BILIRUBIN,DIRECT 0.3 mg/dL (0.0-0.4); BILIRUBIN,TOTAL 0.8 mg/dL (0.2-1.3); BLOOD UREA NITROGEN 11 mg/dL (7-20); CALCIUM 10.2 mg/dL (8.4-10.2); CARBON DIOXIDE 24 mmol/L (22-30); CHLORIDE 107 mmol/L (98-107); GLUCOSE 99 mg/dL (75-110); POTASSIUM 4.2 mmol/L (3.6-5.0); SODIUM 144.3 mmol/L (137-145); TOTAL PROTEIN 8.1 g/dL (6.3-8.2)
[2017-08-02] MEDS ORDERED: METOCLOPRAMIDE HCL INJ/PF 10 MG/2 ML SDV IV ONE (00:53)
[2017-08-02 00:59] LABS: APPEARANCE,URINE SLIGHTLY-CLOUDY; BILIRUBIN,URINE NEGATIVE (NEGATIVE); COLOR,URINE YELLOW; GLUCOSE, URINE NEGATIVE (NEGATIVE); KETONES,URINE NEGATIVE (NEGATIVE); LEUKOCYTE ESTERASE,URINE NEGATIVE (NEGATIVE); NITRITE,URINE NEGATIVE (NEGATIVE); PROTEIN,URINE NEGATIVE (NEGATIVE); URINE SPECIFIC GRAVITY 1.006; UROBILINOGEN,URINE NEGATIVE mg/dL (<2.0)
--- NOTE | 2017-08-02 01:25 | RADIOLOGY REPORT (SQ) ---
EXAM DESCRIPTION: XR CHEST 1 VIEW COMPLETED DATE/TME: 08/02/2017 00:41 CLINICAL HISTORY: 31 years Female, shortness of breath COMPARISON: None. NUMBER OF VIEWS/TECHNIQUE: 1/AP FINDINGS: Increased lung volume, clear parenchyma, normal cardiac silhouette, and intact bony thorax. IMPRESSION: No acute cardiopulmonary findings.
[2017-08-02 02:06] VITALS: BP 99/58
--- NOTE | 2017-08-02 09:44 | EKG REPORT ---
SEVERITY:- ABNORMAL ECG - SINUS RHYTHM FIRST DEGREE AV BLOCK BORDERLINE T ABNORMALITIES, ANT-LAT LEADS : Confirmed by: Carlo Lange 02-Aug-2017 09:42:45
== END 2017-08-02 02:06 | disposition home or self-care (01) ==
LOC: ER 21:39
DX: R11.2 Nausea with vomiting, unspecified (principal); R53.1 Weakness; R42 Dizziness and giddiness; R10.819 Abdominal tenderness, unspecified site; R20.2 Paresthesia of skin; R06.00 Dyspnea, unspecified; D72.829 Elevated white blood cell count, unspecified; R11.10 Vomiting, unspecified; F17.200 Nicotine dependence, unspecified, uncomplicated; Z71.6 Tobacco abuse counseling; Z87.19 Personal history of other diseases of the digestive system; Z88.6 Allergy status to analgesic agent
CPT/HCPCS: 93005; 99284; 96361; 96374; 36415; 85025; 81025; 80053; 81001; 71045; 93010; J3490 ×2; J2765; J7030

== ENCOUNTER 2018-02-02 14:01 | Emergency (ER) | payer MEDICAID ==
[2018-02-02] MEDS ORDERED: METHYLPREDNISOLONE INJ 125 MG/2 ML SDV IV ONE (14:20)
[2018-02-02] MEDS ORDERED: DIPHENHYDRAMINE HCL 50 MG/ML VIAL IV ONE (14:20)
[2018-02-02] MEDS ORDERED: FAMOTIDINE INJ/PF 20 MG/2 ML SDV IV ONE (14:20)
--- NOTE | 2018-02-02 14:24 | ER Document Report ---
ED Medical Screen (RME) - General Chief Complaint: Breathing Difficulty Stated Complaint: DIFFICULTY BREATHING Time Seen by Provider: 02/02/18 14:20 Mode of Arrival: Ambulatory Information source: Patient TRAVEL OUTSIDE OF THE [place] IN LAST 30 DAYS: No - HPI Patient complains to provider of: allergic reaction Onset: This morning - pt took keflex earlier this am and for the past couple of hrs. has been having difficulty breathing and feeling like her throat is closing up. - Related Data Allergies/Adverse Reactions: aspirin Allergy (Verified 02/02/18 14:02) Past Medical History Renal/ Medical History: Denies: Hx Peritoneal Dialysis GI Medical History: Reports: Hx Gastritis Psychiatric Medical History: Reports: Hx Anxiety Past Surgical History: Reports: Hx Gynecologic Surgery - 3 D&Cs - Immunizations Hx Diphtheria, Pertussis, Tetanus Vaccination: Yes Physical Exam - Vital signs Vitals: Temp Pulse Resp BP Pulse Ox 98.9 F 75 18 104/61 99 02/02/18 14:13 02/02/18 14:13 02/02/18 14:13 02/02/18 14:13 02/02/18 14:13 Course - Vital Signs Vital signs: Temp Pulse Resp BP Pulse Ox 98.9 F 75 18 104/61 99 02/02/18 14:13 02/02/18 14:13 02/02/18 14:13 02/02/18 14:13 02/02/18 14:13
[2018-02-02] MEDS ORDERED: DIPHENHYDRAMINE HCL 50 MG/ML VIAL IM ONE (14:30)
[2018-02-02] MEDS ORDERED: METHYLPREDNISOLONE INJ 125 MG/2 ML SDV IM ONE (14:31)
[2018-02-02] MEDS ORDERED: FAMOTIDINE 20 MG TABLET PO ONE (14:31)
[2018-02-02] MEDS ORDERED: ONDANSETRON 4 MG TAB.RAPDIS PO ONE (17:27)
--- NOTE | 2018-02-02 17:31 | ER Document Report ---
ED General - General Chief Complaint: Breathing Difficulty Stated Complaint: DIFFICULTY BREATHING Time Seen by Provider: 02/02/18 14:20 Mode of Arrival: Ambulatory TRAVEL OUTSIDE OF THE [place] IN LAST 30 DAYS: No - HPI Onset: This morning Quality of pain: No pain Severity: Mild Associated symptoms: Shortness of breath Exacerbated by: Denies Relieved by: Denies Notes: Patient is a 32-year-old female that presents to the emergency department for chief complaint of allergic reaction. Patient states that she has been taking Keflex for the last 4 days for urinary tract infection. Today she started to notice some swelling in the back of her throat after taking the antibiotic. The throat swelling has completely resolved after a dose of Benadryl, Pepcid and Solu-Medrol given in triage. She currently states she feels much better. She denies history of anaphylactic reaction in the past. She denies any rash. She did have some shortness of breath which is also now resolved. Patient states that the urinary pressure and dysuria she was experience with her UTI has completely resolved and she feels she is over her urinary tract infection. She has no other complaints currently. Past Medical History: Gastritis Past Surgical History: EGD Social History: Occasional marijuana. Daily tobacco. Denies alcohol Family History: Reviewed and noncontributory for presenting illness Allergies: Reviewed, see documented allergy list. REVIEW OF SYSTEMS: CONSTITUTIONAL : No fever No chills No diaphoresis No recent illness EENT: No vision changes No congestion Throat swelling CARDIOVASCULAR: No chest pain No palpitations RESPIRATORY: shortness of breath No cough No difficulty breathing GASTROINTESTINAL: No abdominal pain No nausea No vomiting No diarrhea GENITOURINARY: No dysuria No hematuria No difficulty urinating MUSCULOSKELETAL: No back pain No leg pain No arm pain SKIN: No rashes No lesions LYMPHATIC: No swollen, enlarged glands. NEUROLOGICAL: No lightheadedness No headache No weakness No paresthesias PSYCHIATRIC: No anxiety No depression PHYSICAL EXAMINATION: Vital signs reviewed, nursing noted reviewed. GENERAL: Well-appearing, well-nourished and in no acute distress. HEAD: Atraumatic, normocephalic. EYES: Eyes appear normal, extraocular movements intact, sclera anicteric, conjunctiva are normal. ENT: nares patent, oropharynx clear without exudates. Moist mucous membranes. NECK: Normal range of motion, supple without lymphadenopathy LUNGS: Breath sounds clear to auscultation bilaterally and equal. No wheezes rales or rhonchi. HEART: Regular rate and rhythm without murmurs ABDOMEN: Soft, nontender, normoactive bowel sounds. No rebound, guarding, or rigidity. No masses appreciated. EXTREMITIES: Nontender, good range of motion, no pitting or edema. NEUROLOGICAL: No focal neurological deficits. Moves all extremities spontaneously Motor and sensory grossly intact on exam. PSYCH: Normal mood, normal affect. SKIN: Warm, Dry, normal turgor, no rashes or lesions noted on exposed skin - Related Data Allergies/Adverse Reactions: aspirin Allergy (Verified 02/02/18 14:02) Past Medical History - General Information source: Patient - Social History Smoking Status: Current Every Day Smoker Chew tobacco use (# tins/day): No Frequency of alcohol use: None Drug Abuse: Marijuana Family History: Reviewed & Not Pertinent Patient has suicidal ideation: No Patient has homicidal ideation: No Renal/ Medical History: Denies: Hx Peritoneal Dialysis GI Medical History: Reports: Hx Gastritis Psychiatric Medical History: Reports: Hx Anxiety Past Surgical History: Reports: Hx Gynecologic Surgery - 3 D&Cs - Immunizations Hx Diphtheria, Pertussis, Tetanus Vaccination: Yes Physical Exam - Vital signs Vitals: Temp Pulse Resp BP Pulse Ox 98.9 F 75 18 104/61 99 02/02/18 14:13 02/02/18 14:13 02/02/18 14:13 02/02/18 14:13 02/02/18 14:13 Course - Re-evaluation Re-evalutation: 02/02/18 17:29 Vitals reviewed. Nursing notes reviewed. Patient is in no acute distress. She is currently asymptomatic. There is no visible oropharyngeal edema. Patient will continue taking Benadryl at home as she feels she is having continued allergic reaction. She was not anaphylactic. She is complaining of some mild nausea now and will be given a dose of Zofran. Patient has completed 4 days of antibiotics and is currently asymptomatic of her urinary tract infection. She was told to stop the Keflex. No further antibiotics are currently indicated. She will follow with her primary care doctor as needed for follow-up. - Vital Signs Vital signs: Temp Pulse Resp BP Pulse Ox 98.9 F 75 18 104/61 99 02/02/18 14:13 02/02/18 14:13 02/02/18 14:13 02/02/18 14:13 02/02/18 14:13 Discharge - Discharge Clinical Impression: Allergic reaction Qualifiers: Encounter type: initial encounter Qualified Code(s): T78.40XA - Allergy, unspecified, initial encounter Condition: Stable Disposition: HOME, SELF-CARE Instructions: Acute Allergic Reaction ([facility]) Additional Instructions: Please return to the emergency department if you have any worsening, or concern of your symptoms. Please return to the emergency department if you develop chest pain, difficulty breathing, severe abdominal pain, or ongoing vomiting. Please follow-up with your primary care physician in 2-3 days and any other recommended physicians. If prescribed, take all medications as directed. If you have any questions or concerns do not hesitate to return the emergency department for evaluation. [] Prescriptions: Ondansetron [Zofran Odt 4 mg Tablet] 1 tab PO Q4H PRN #15 tab.rapdis PRN Reason: For Nausea/Vomiting Referrals: [facility] [Provider Group] - Follow up as needed
[2018-02-02 17:59] VITALS: BP 94/58
== END 2018-02-02 17:59 | disposition home or self-care (01) ==
LOC: ER 14:01
DX: R06.00 Dyspnea, unspecified (principal); R06.02 Shortness of breath; T78.40XA Allergy, unspecified, initial encounter; X58.XXXA Exposure to other specified factors, initial encounter; F17.200 Nicotine dependence, unspecified, uncomplicated
CPT/HCPCS: 99284; 96372; J3490; J1200; S0119; J2930

== ENCOUNTER 2018-02-09 00:39 | Emergency (ER) | payer MEDICAID ==
[2018-02-09 00:58] VITALS: BP 118/64
[2018-02-09] MEDS ORDERED: FAMOTIDINE 20 MG TABLET PO ONE (01:27)
[2018-02-09] MEDS ORDERED: ONDANSETRON 4 MG TAB.RAPDIS PO ONE (01:27)
--- NOTE | 2018-02-09 01:31 | ER Document Report ---
ED General - General Chief Complaint: Chest Pain > 30 Stated Complaint: CHEST PAIN Time Seen by Provider: 02/09/18 01:09 TRAVEL OUTSIDE OF THE [place] IN LAST 30 DAYS: No - HPI Onset: Other - 3 days Onset/Duration: Intermittent Quality of pain: Burning Severity: Moderate Associated symptoms: Nausea Exacerbated by: Other - Laying flat Relieved by: Sitting Similar symptoms previously: Yes Recently seen / treated by doctor: No Notes: Patient is a 32-year-old female that presents to the emergency department for chief complaint of chest pain. Patient states for the last 3 days she has had a epigastric and substernal pain. She states it is burning in nature. The pain seems to be worse when she is lying flat and relieved when she is sitting up. She does have gastritis and states she has taken omeprazole in the past. Her current prescription is and she has not been taking it. She denies any shortness of breath, palpitations, and vomiting. She does state that she feels nauseated. Patient is also stating she feels very anxious right now. He does have a history of anxiety but does not know what the medicine she used to take for her anxiety is called Past Medical History: Anxiety, gastritis Past Surgical History: Reviewed in chart Social History: Reviewed in chart Family History: Reviewed and noncontributory for presenting illness Allergies: Reviewed, see documented allergy list. REVIEW OF SYSTEMS: CONSTITUTIONAL : No fever No chills No diaphoresis No recent illness EENT: No vision changes No congestion No sore throat CARDIOVASCULAR: chest pain No palpitations RESPIRATORY: No shortness of breath No cough No difficulty breathing GASTROINTESTINAL: No abdominal pain nausea No vomiting No diarrhea GENITOURINARY: No dysuria No hematuria No difficulty urinating MUSCULOSKELETAL: No back pain No leg pain No arm pain SKIN: No rashes No lesions LYMPHATIC: No swollen, enlarged glands. NEUROLOGICAL: No lightheadedness No headache No weakness No paresthesias PSYCHIATRIC: anxiety No depression PHYSICAL EXAMINATION: Vital signs reviewed, nursing noted reviewed. GENERAL: Well-appearing, well-nourished and in no acute distress. HEAD: Atraumatic, normocephalic. EYES: Eyes appear normal, extraocular movements intact, sclera anicteric, conjunctiva are normal. ENT: nares patent, oropharynx clear without exudates. Moist mucous membranes. NECK: Normal range of motion, supple without lymphadenopathy LUNGS: Breath sounds clear to auscultation bilaterally and equal. No wheezes rales or rhonchi. HEART: Regular rate and rhythm without murmurs ABDOMEN: Soft, nontender, normoactive bowel sounds. No rebound, guarding, or rigidity. No masses appreciated. EXTREMITIES: Nontender, good range of motion, no pitting or edema. NEUROLOGICAL: No focal neurological deficits. Moves all extremities spontaneously Motor and sensory grossly intact on exam. PSYCH: Anxious, pressured speech, pacing in the room refusing to sit down SKIN: Warm, Dry, normal turgor, no rashes or lesions noted on exposed skin - Related Data Allergies/Adverse Reactions: aspirin Allergy (Verified 02/09/18 00:52) cephalexin [From Keflex] Allergy (Verified 02/09/18 00:52) Past Medical History - Social History Smoking Status: Never Smoker Family History: Reviewed & Not Pertinent Renal/ Medical History: Denies: Hx Peritoneal Dialysis GI Medical History: Reports: Hx Gastritis Psychiatric Medical History: Reports: Hx Anxiety Past Surgical History: Reports: Hx Gynecologic Surgery - 3 D&Cs - Immunizations Hx Diphtheria, Pertussis, Tetanus Vaccination: Yes Physical Exam - Vital signs Vitals: Pulse Resp BP Pulse Ox 94 24 H 118/64 100 02/09/18 00:56 02/09/18 00:56 02/09/18 00:56 02/09/18 00:56 Course - Re-evaluation Re-evalutation: 02/09/18 01:30 Vitals reviewed. Nursing notes reviewed. Patient is afebrile and nontoxic. Her EKG shows no acute ischemia. She appears very anxious and is pacing during my exam with her. She states she feels better when she is pacing and does not want to sit down. She currently does not have the chest pain. She states it is worse when she is lying flat which is consistent with her reflux in the past. She has no risk factors for CAD and I do not suspect ACS as a cause of her chest pain. She is PERC criteria negative and PE not suspected. Laboratory 02/09/18 01:18 Urine Color YELLOW Urine Appearance CLEAR Urine pH 8.0 Ur Specific [place] 1.005 Urine Protein NEGATIVE Urine Glucose (UA) NEGATIVE Urine Ketones NEGATIVE Urine Blood NEGATIVE Urine Nitrite NEGATIVE Urine Bilirubin NEGATIVE Urine Urobilinogen NEGATIVE Ur Leukocyte Esterase TRACE H Urine WBC (Auto) 2 Urine RBC (Auto) 1 Urine Bacteria (Auto) TRACE Squamous Epi Cells Auto 6 Urine Mucus (Auto) RARE Urine Ascorbic Acid NEGATIVE Urine HCG, Qual NEGATIVE Chest X-Ray 02/09/18 01:27 IMPRESSION: Negative chest copyright 2010 [employer]- All Rights Reserved Patient does report feeling nauseous and was given Zofran and Pepcid in the emergency room for symptom medic management. She denies any urinary complaints today and does not believe she has another urinary tract infection. 02/09/18 02:17 Chest x-ray negative for acute process. Patient discharged home in stable condition. - Vital Signs Vital signs: Temp Pulse Resp BP Pulse Ox 94 24 H 118/64 100 02/09/18 00:56 02/09/18 00:56 02/09/18 00:56 02/09/18 00:56 - Laboratory Laboratory results interpreted by me: 02/09/18 01:18 Ur Leukocyte Esterase TRACE H - EKG Interpretation by Me Additional EKG results interpreted by me: 02/09/18 01:31 Interpreted by myself 0052: Normal sinus rhythm, rate 95, normal axis, no ectopy, no ST elevation Discharge - Discharge Clinical Impression: Anxiety Chest pain Qualifiers: Chest pain type: unspecified Qualified Code(s): R07.9 - Chest pain, unspecified GERD (gastroesophageal reflux disease) Qualifiers: Esophagitis presence: esophagitis presence not specified Qualified Code(s): K21.9 - Gastro-esophageal reflux disease without esophagitis Condition: Stable Disposition: HOME, SELF-CARE Instructions: Anxiety ([facility]), Reflux Disease (GERD) ([facility]) Additional Instructions: Please return to the emergency department if you have any worsening, or concern of your symptoms. Please return to the emergency department if you develop chest pain, difficulty breathing, severe abdominal pain, or ongoing vomiting. Please follow-up with your primary care physician in 2-3 days and any other recommended physicians. If prescribed, take all medications as directed. If you have any questions or concerns do not hesitate to return the emergency department for evaluation. Prescriptions: Omeprazole 40 mg PO DAILY #30 capsule. Referrals: [facility] [Provider Group] - Follow up in 1 week
[2018-02-09 01:33] LABS: APPEARANCE,URINE CLEAR; BILIRUBIN,URINE NEGATIVE (NEGATIVE); COLOR,URINE YELLOW; GLUCOSE, URINE NEGATIVE (NEGATIVE); KETONES,URINE NEGATIVE (NEGATIVE); LEUKOCYTE ESTERASE,URINE TRACE (NEGATIVE); NITRITE,URINE NEGATIVE (NEGATIVE); PROTEIN,URINE NEGATIVE (NEGATIVE); URINE SPECIFIC GRAVITY 1.005; UROBILINOGEN,URINE NEGATIVE mg/dL (<2.0)
--- NOTE | 2018-02-09 02:08 | RADIOLOGY REPORT (SQ) ---
EXAM DESCRIPTION: XR CHEST 1 VIEW COMPLETED DATE/TME: 02/09/2018 01:27 CLINICAL HISTORY: 32 years, Female, chest pain COMPARISON: None. NUMBER OF VIEWS: 1 TECHNIQUE: Portable chest LIMITATIONS: None. FINDINGS: Heart size is normal. Lungs are clear. No pneumothorax IMPRESSION: Negative chest copyright 2010 [employer]- All Rights Reserved
--- NOTE | 2018-02-09 12:59 | EKG REPORT ---
SEVERITY:- NORMAL ECG - SINUS RHYTHM : Confirmed by: Carlo Lange 09-Feb-2018 12:58:25
== END 2018-02-09 02:42 | disposition home or self-care (01) ==
LOC: ER 00:39
DX: K21.9 Gastro-esophageal reflux disease without esophagitis (principal); R07.9 Chest pain, unspecified; F41.9 Anxiety disorder, unspecified; R10.13 Epigastric pain
CPT/HCPCS: 93005; 99285; 81025; 81001; 71045; 93010; J3490; S0119

== ENCOUNTER 2018-11-20 01:57 | Emergency (ER) | payer MEDICAID ==
[2018-11-20 03:21] LABS: APPEARANCE,URINE CLEAR; BILIRUBIN,URINE NEGATIVE (NEGATIVE); COLOR,URINE YELLOW; GLUCOSE, URINE NEGATIVE (NEGATIVE); KETONES,URINE TRACE mg/dL (NEGATIVE); LEUKOCYTE ESTERASE,URINE NEGATIVE (NEGATIVE); NITRITE,URINE NEGATIVE (NEGATIVE); PROTEIN,URINE NEGATIVE (NEGATIVE); URINE SPECIFIC GRAVITY 1.005; UROBILINOGEN,URINE NEGATIVE mg/dL (<2.0)
[2018-11-20 03:34] LABS: ABSOLUTE BASOPHILS # (AUTO) 0.1 10^3/uL (0.0-0.2); ABSOLUTE EOSINOPHILS # (AUTO) 0.2 10^3/uL (0.0-0.6); ABSOLUTE LYMPHOCYTES (AUTO) 1.3 10^3/uL (0.5-4.7); ABSOLUTE MONOCYTES (AUTO) 0.4 10^3/uL (0.1-1.4); ABSOLUTE NEUT (AUTO) 4.6 10^3/uL (1.7-8.2); BASOPHILS % (AUTO) 0.9 % (0-2); EOSINOPHILS % (AUTO) 2.9 % (0-6); HEMATOCRIT 40.5 % (36.0-47.0); HEMOGLOBIN 13.3 g/dL (12.0-15.5); LYMPHOCYTES % (AUTO) 20.3 % (13-45); MEAN CORPUSCULAR HEMOGLOBIN 30.4 pg (27.0-33.4); MEAN CORPUSCULAR HGB CONC 32.8 g/dL (32.0-36.0); MEAN CORPUSCULAR VOLUME 93 fl (80-97); MONOCYTES % (AUTO) 5.9 % (3-13); PLATELET COUNT 208 10^3/uL (150-450); RED BLOOD COUNT 4.37 10^6/uL (3.72-5.28); RED CELL DISTRIBUTION WIDTH 12.5 % (11.5-14.0); TOTAL CELLS COUNTED % (AUTO) 100 %; WHITE BLOOD COUNT 6.6 10^3/uL (4.0-10.5)
[2018-11-20 03:44] LABS: ALBUMIN 4.8 g/dL (3.5-5.0); ALKALINE PHOSPHATASE 54 U/L (38-126); ANION GAP 10 (5-19); ASPARTATE AMINO TRANSFERASE 23 U/L (14-36); BILIRUBIN,DIRECT 0.1 mg/dL (0.0-0.4); BILIRUBIN,TOTAL 0.9 mg/dL (0.2-1.3); BLOOD UREA NITROGEN 10 mg/dL (7-20); CALCIUM 9.8 mg/dL (8.4-10.2); CARBON DIOXIDE 28 mmol/L (22-30); CHLORIDE 104 mmol/L (98-107); GLUCOSE 90 mg/dL (75-110); TOTAL PROTEIN 8.2 g/dL (6.3-8.2)
--- NOTE | 2018-11-20 04:57 | ER Document Report ---
ED GI/ - General Chief Complaint: Abdominal Pain Stated Complaint: Abdominal Pain Time Seen by Provider: 11/20/18 04:39 Notes: Patient is a 33-year-old female that comes emergency department for chief complaint of abdominal pain. She states the pain is in the mid to upper and left side of her abdomen, she states that this is more noticeable when she lies down, she becomes nauseated. She has had a few loose bowel movements as well. She denies vomiting, fever, dysuria, lower abdominal pain, vaginal bleeding or discharge, flank pain. She states that she self treated for what she thought was a urinary tract infection with Azo but this did resolve. She states she is supposed to be taking medications including Prilosec for gastritis but she is not, she states she had an endoscopy and was diagnosed with gastritis but no other abnormality, she admits she does smoke, denies alcohol, smokes marijuana but denies recreational drugs otherwise. She denies medical history otherwise. TRAVEL OUTSIDE OF THE [place] IN LAST 30 DAYS: No - Related Data Allergies/Adverse Reactions: aspirin Allergy (Verified 11/20/18 02:39) cephalexin [From Keflex] Allergy (Verified 11/20/18 02:39) Past Medical History - General Information source: Patient - Social History Smoking Status: Current Every Day Smoker Chew tobacco use (# tins/day): No Smoking Education Provided: Yes - <3 min Frequency of alcohol use: None Drug Abuse: None Lives with: Family Family History: Reviewed & Not Pertinent Patient has suicidal ideation: No Patient has homicidal ideation: No Renal/ Medical History: Denies: Hx Peritoneal Dialysis GI Medical History: Reports: Hx Gastritis Psychiatric Medical History: Reports: Hx Anxiety Past Surgical History: Reports: Hx Gynecologic Surgery - 3 D&Cs - Immunizations Hx Diphtheria, Pertussis, Tetanus Vaccination: Yes Review of Systems - Review of Systems Constitutional: No symptoms reported EENT: No symptoms reported Cardiovascular: No symptoms reported Respiratory: No symptoms reported Gastrointestinal: See HPI Genitourinary: No symptoms reported Female Genitourinary: No symptoms reported Musculoskeletal: No symptoms reported Skin: No symptoms reported Hematologic/Lymphatic: No symptoms reported Neurological/Psychological: No symptoms reported Physical Exam - Vital signs Vitals: Temp Pulse Resp BP Pulse Ox 98.3 F 73 16 143/78 H 98 11/20/18 02:02 11/20/18 02:02 11/20/18 02:02 11/20/18 02:02 11/20/18 02:02 - Notes Notes: GENERAL: Alert, interacts well. No acute distress. HEAD: Normocephalic, atraumatic. EYES: Pupils equal, round, and reactive to light. Extraocular movements intact. ENT: Oral mucosa moist, tongue midline. Oropharynx unremarkable. Airway patent. NECK: Full range of motion. Supple. Trachea midline. LUNGS: Clear to auscultation bilaterally, no wheezes, rales, or rhonchi. No respiratory distress. HEART: Regular rate and rhythm. No murmur ABDOMEN: Soft, non-tender. Non-distended. Bowel sounds present in all 4 quadrants. GENITOURINARY: Deferred EXTREMITIES: Moves all 4 extremities spontaneously. No edema, normal radial and dorsalis pedis pulses bilaterally. No cyanosis. BACK: no cervical, thoracic, lumbar midline tenderness. No saddle anesthesia, normal distal neurovascular exam. Moves all extremities in full range of motion. NEUROLOGICAL: Alert and oriented x3. Normal speech. Cranial nerves II through XII grossly intact. PSYCH: Normal affect, normal mood. SKIN: Warm, dry, normal turgor. No rashes or lesions noted. Course - Re-evaluation Re-evalutation: Patient explicitly tells me that she thinks this is gastritis but she wants to make sure there is nothing else and she is not . She has no concerning vital signs, she is alert and well-appearing on my exam, she has no current complaints, her abdomen is soft and benign. CBC unremarkable, chemistry unremarkable, lipase not elevated, test negative, urinalysis unremarkable. I discussed the patient. She states satisfaction, states she would like to be treated for gastritis and she will follow-up with primary care for additional management. I did discuss recommendations in regards to this and return precautions. Patient states agreement. Stable at time of discharge. - Vital Signs Vital signs: Temp Pulse Resp BP Pulse Ox 98.2 F 51 L 16 102/56 L 100 11/20/18 07:00 11/20/18 07:00 11/20/18 07:00 11/20/18 07:00 11/20/18 07:00 - Laboratory Result Diagrams: 11/20/18 03:24 11/20/18 03:24 Laboratory results interpreted by me: 11/20/18 02:45 Urine Ketones TRACE H Discharge - Discharge Clinical Impression: Upper abdominal pain, Nausea Condition: Stable Disposition: HOME, SELF-CARE Additional Instructions: Your symptoms and examination indicate gastritis/esophagitis (inflammation of your upper gastrointestinal tract). Take Zofran for nausea, take Carafate and Pepcid as prescribed to help treat this, you can take additional your Prilosec daily as well. You can take Tylenol for pain. Avoid NSAIDs, alcohol, smoking, caffeine, spicy food. Start with clear fluids, progress to bland diet. Follow-up with primary care for additional evaluation and treatment including possible H. pylori testing. Return if you worsen including uncontrolled vomiting, vomiting blood, black stools, severe pain, fever of 100.4 or greater, or any other concerning or worsening symptoms. Prescriptions: Sucralfate [Carafate 1 gm Tablet] 1 gm PO QID #20 tablet Famotidine [Pepcid 20 mg Tablet] 20 mg PO BID #20 tablet Ondansetron [Zofran Odt 4 mg Tablet] 1 - 2 tab PO Q4H PRN #15 tab.rapdis PRN Reason: For Nausea/Vomiting
[2018-11-20] MEDS ORDERED: SUCRALFATE 1 GM TABLET PO ONE (05:22)
[2018-11-20] MEDS ORDERED: ONDANSETRON ODT 4 MG TAB (6 TAB/ER DISP) PO PRN (05:22)
[2018-11-20] MEDS ORDERED: FAMOTIDINE 20 MG TABLET PO ONE (05:22)
[2018-11-20 07:00] VITALS: BP 102/56
== END 2018-11-20 07:02 | disposition home or self-care (01) ==
LOC: ER 01:57
DX: R10.10 Upper abdominal pain, unspecified (principal); R11.0 Nausea; F17.200 Nicotine dependence, unspecified, uncomplicated; Z88.6 Allergy status to analgesic agent
CPT/HCPCS: 36415; 84702; 83690; 85025; 81025; 80053; 81001; J3490 ×2; 99284

== ENCOUNTER 2019-08-14 06:17 | Emergency (ER) | payer MEDICAID ==
[2019-08-14 06:28] VITALS: BP 121/76
== END 2019-08-14 06:40 | disposition left against medical advice (07) ==
LOC: ER 06:17
DX: Z53.21 Procedure and treatment not carried out due to patient leaving prior to being seen by health care provider (principal)

== ENCOUNTER 2019-08-15 12:41 | Emergency (ER) | payer MEDICAID ==
--- NOTE | 2019-08-15 14:58 | ER Document Report ---
ED Medical Screen (RME) - General Chief Complaint: Pain With Urination Stated Complaint: BLOOD WITH URINATION Time Seen by Provider: 08/15/19 14:43 TRAVEL OUTSIDE OF THE [place] IN LAST 30 DAYS: No - HPI Notes: 08/15/19 14:54 33-year-old female 8 para 4 history of gastritis presents emergency room for 4 days of vaginal bleeding and cramping. States her last menstrual cycle was August 04, 2019, is not any control, has had multiple negative tests. Denies any fevers or chills. Nothing makes worse nothing makes better. States she is having light bleeding, changes her tampon every 6 hours or so. Denies any chest pain, shortness of breath, nausea vomiting or diarrhea. I have greeted and performed a rapid initial assessment of this patient. A comprehensive ED assessment and evaluation of the patient, analysis of test results and completion of the medical decision making process will be conducted by additional ED providers. PHYSICAL EXAMINATION: CV: s1, s2 regular LUNGS: No respiratory distress abd: L>R pelvic pain Musculoskeletal: Normal range of motion NEUROLOGICAL: Normal speech, normal gait. SKIN: Warm, Dry, normal turgor, no rashes or lesions noted. 08/15/19 14:58 - Related Data Allergies/Adverse Reactions: aspirin Allergy (Verified 08/15/19 14:47) cephalexin [From Keflex] Allergy (Verified 08/15/19 14:47) Past Medical History Renal/ Medical History: Denies: Hx Peritoneal Dialysis GI Medical History: Reports: Hx Gastritis Psychiatric Medical History: Reports: Hx Anxiety Past Surgical History: Reports: Hx Gynecologic Surgery - 3 D&Cs - Immunizations Hx Diphtheria, Pertussis, Tetanus Vaccination: Yes Physical Exam - Vital signs Vitals: Temp Pulse Resp BP Pulse Ox 99.9 F 76 14 115/72 99 08/15/19 12:49 08/15/19 12:49 08/15/19 12:49 08/15/19 12:49 08/15/19 12:49 Course - Vital Signs Vital signs: Temp Pulse Resp BP Pulse Ox 99.9 F 76 14 115/72 99 08/15/19 12:49 08/15/19 12:49 08/15/19 12:49 08/15/19 12:49 08/15/19 12:49
[2019-08-15 15:31] LABS: ABSOLUTE EOSINOPHILS # (AUTO) 0.2 10^3/uL (0.0-0.6); ABSOLUTE LYMPHOCYTES (AUTO) 2.2 10^3/uL (0.5-4.7); ABSOLUTE MONOCYTES (AUTO) 0.5 10^3/uL (0.1-1.4); ABSOLUTE NEUT (AUTO) 4.7 10^3/uL (1.7-8.2); BASOPHILS % (AUTO) 0.6 % (0-2); EOSINOPHILS % (AUTO) 2.9 % (0-6); HEMATOCRIT 38.3 % (36.0-47.0); HEMOGLOBIN 12.9 g/dL (12.0-15.5); LYMPHOCYTES % (AUTO) 29.1 % (13-45); MEAN CORPUSCULAR HEMOGLOBIN 31.2 pg (27.0-33.4); MEAN CORPUSCULAR HGB CONC 33.5 g/dL (32.0-36.0); MEAN CORPUSCULAR VOLUME 93 fl (80-97); MONOCYTES % (AUTO) 6.3 % (3-13); PLATELET COUNT 240 10^3/uL (150-450); RED BLOOD COUNT 4.12 10^6/uL (3.72-5.28); RED CELL DISTRIBUTION WIDTH 13.2 % (11.5-14.0); SEGMENTED NEUTROPHILS % (AUTO) 61.1 % (42-78); TOTAL CELLS COUNTED % (AUTO) 100 %; WHITE BLOOD COUNT 7.7 10^3/uL (4.0-10.5)
[2019-08-15 15:38] LABS: APPEARANCE,URINE SLIGHTLY-CLOUDY; BILIRUBIN,URINE NEGATIVE (NEGATIVE); COLOR,URINE YELLOW; GLUCOSE, URINE NEGATIVE (NEGATIVE); KETONES,URINE NEGATIVE (NEGATIVE); LEUKOCYTE ESTERASE,URINE TRACE (NEGATIVE); NITRITE,URINE NEGATIVE (NEGATIVE); PROTEIN,URINE NEGATIVE (NEGATIVE); URINE SPECIFIC GRAVITY 1.023; UROBILINOGEN,URINE NEGATIVE mg/dL (<2.0)
--- NOTE | 2019-08-15 15:51 | RADIOLOGY REPORT (SQ) ---
EXAM DESCRIPTION: U/S NON OB PEL W/DOPPLER IMAGES COMPLETED DATE/TIME: 08/15/2019 3:38 pm REASON FOR STUDY: vaginal bleeding, cramping to R>L pelvic area COMPARISON: None. TECHNIQUE: Dynamic and static grayscale images acquired of the pelvis via transabdominal approach an d recorded on PACS. Additional selected color Doppler and spectral images recorded. LIMITATIONS: status is not known, HCG pending FINDINGS: UTERUS: Contour normal. No mass. Uterus is 8 x 5 x 4 cm ENDOMETRIAL STRIPE: No focal or generalized thickening. No masses. Endometrium 3 to 4 mm in thicknes s. CERVIX: No nabothian cysts. Closed, 3 cm in length. RIGHT OVARY AND DOPPLER: Right ovary is 4.2 x 3.1 x 3.2 cm. A septated cyst with low level internal echoes is present 3 x 2.8 x 2 cm in size, likely a hemorrhagic cyst. Correlate with HCG to exclude e ctopic . Findings discussed with Dori Berrios in the emergency room. Normal arterial vascu lar flow without evidence for torsion. LEFT OVARY AND DOPPLER: Normal size, 2.2 x 2 x 1.8 cm. No worrisome masses. Normal arterial vascular flow without evidence for torsion. FREE FLUID: Small amount of cul-de-sac and right adnexal free fluid without debris OTHER: No other significant finding. IMPRESSION: Probable hemorrhagic cyst right ovary. Small amount of cul-de-sac and right adnexal edd e fluid. Correlate with status to exclude ectopic . Findings discussed with the emergency room practitioner TECHNICAL DOCUMENTATION: JOB ID: [id number] 2010 [employer]- All Rights Reserved Reading location - IP/workstation name: [email or web address]
[2019-08-15 15:54] LABS: ALBUMIN 4.6 g/dL (3.5-5.0); ALKALINE PHOSPHATASE 57 U/L (38-126); ANION GAP 5 (5-19); ASPARTATE AMINO TRANSFERASE 28 U/L (14-36); BILIRUBIN,TOTAL 0.7 mg/dL (0.2-1.3); BLOOD UREA NITROGEN 13 mg/dL (7-20); CALCIUM 9.9 mg/dL (8.4-10.2); CARBON DIOXIDE 30 mmol/L (22-30); CHLORIDE 105 mmol/L (98-107); GLUCOSE 79 mg/dL (75-110); POTASSIUM 4.6 mmol/L (3.6-5.0); TOTAL PROTEIN 7.8 g/dL (6.3-8.2)
--- NOTE | 2019-08-15 16:54 | ER Document Report ---
ED General - General Chief Complaint: Vaginal Bleeding Stated Complaint: BLOOD WITH URINATION Time Seen by Provider: 08/15/19 14:43 Notes: 33-year-old female who reports no pertinent past medical history PE G4 presenting with vaginal bleeding for 2 to 3 days. States it is painless. States she had mild suprapubic pain. Some urgency. No pain with urination. States she has vaginal odor. No white discharge. States her discharge is due to the blood. She states that her last menstrual cycle was August 04. It was 2 days and is normally 7 days. She denies any abdominal pain at this time. She states she is not bleeding through a pad or tampon an hour. States her vaginal bleeding is light. She denies any additional symptoms to include fever, chills, shortness of breath or back pain. Is concerned that she can feel her pulse in her abdomen. States she can feel it more prominently at this time. States she takes Carafate and Phenergan for her abdominal gastritis TRAVEL OUTSIDE OF THE [place] IN LAST 30 DAYS: No - Related Data Allergies/Adverse Reactions: aspirin Allergy (Verified 08/15/19 14:47) cephalexin [From Keflex] Allergy (Verified 08/15/19 14:47) Past Medical History - Social History Smoking Status: Current Every Day Smoker Chew tobacco use (# tins/day): No Drug Abuse: Marijuana Family History: Reviewed & Not Pertinent Patient has homicidal ideation: No Renal/ Medical History: Denies: Hx Peritoneal Dialysis GI Medical History: Reports: Hx Gastritis Psychiatric Medical History: Reports: Hx Anxiety Past Surgical History: Reports: Hx Gynecologic Surgery - 3 D&Cs - Immunizations Hx Diphtheria, Pertussis, Tetanus Vaccination: Yes Review of Systems - Review of Systems Constitutional: No symptoms reported EENT: No symptoms reported Cardiovascular: See HPI Respiratory: No symptoms reported Gastrointestinal: No symptoms reported Genitourinary: No symptoms reported Physical Exam - Vital signs Vitals: Temp Pulse Resp BP Pulse Ox 99.9 F 76 14 115/72 99 08/15/19 12:49 08/15/19 12:49 08/15/19 12:49 08/15/19 12:49 08/15/19 12:49 Interpretation: Normal - Notes Notes: Adult General: GENERAL: Alert, interacts well. No acute distress HEAD: Normocephalic, atraumatic EYES: Extraocular movements intact. ENT: Airway patent. Nares patent. NECK: Full range of motion. Supple. Trachea midline. No lymphadenopathy. LUNGS: Clear to auscultation bilaterally, no wheezes, rales, or rhonchi. No respiratory distress. Nontender chest wall. HEART: Regular rate and rhythm. No murmurs, rubs or gallops. ABDOMEN: Soft, nontender. Nondistended. (-) Raynham sign. Bowel sounds present in all 4 quadrants. No rebound, guarding or masses. Palpable abdominal aorta. GENITOURINARY: Deferred EXTREMITIES: Moves all 4 extremities spontaneously. BACK: Moves all extremities with full range of motion. NEUROLOGICAL: Alert and oriented x3. Normal speech. Strength 5/ 5 in all extremities. PSYCH: Normal affect, normal mood. SKIN: Warm, dry, normal turgor. No rashes or lesions noted. Course - Re-evaluation Re-evalutation: 08/15/19 17:06 Patient's labs are unremarkable. Her urine is negative. Her ultrasound shows a likely right-sided hemorrhagic cyst but recommend ruling out ectopic . I am currently pending the results of the beta hCG serum. Discussed with patient that the pulse that she is feeling is her abdominal aorta. She has concerns that it is becoming more noticeable in the last couple of days. We will go ahead and image that. 08/15/19 17:06 Reexamined patient. Her bhcg is negative. I am pending the results of her wet prep as she states that she has vaginal odor. Discussed doing a pelvic exam. I do not feel this is indicated at this time. I will go ahead and have patient self swab to evaluate for BV or yeast infection. Patient is anxious to leave and is hungry. I discussed she also have bacterial vaginosis. Will treat her for this. Discussed with her that she should not drink while taking this medication. She does not desire to have the abdominal ultrasound or to wait for the results if she were to have it performed as she is hungry. Discussed with patient that I recommend she have follow up evaluation for her abdomen and to return to the emergency department if she develops new or worsening symptoms. Patient acknowledges and verbalizes understanding of instructions and plan. All questions answered. - Vital Signs Vital signs: Temp Pulse Resp BP Pulse Ox 98 F 60 16 111/64 99 08/15/19 19:05 08/15/19 19:05 08/15/19 19:05 08/15/19 19:05 08/15/19 19:05 - Laboratory Result Diagrams: 08/15/19 15:05 08/15/19 15:05 Laboratory results interpreted by me: 08/15/19 15:05 Urine Blood LARGE H Ur Leukocyte Esterase TRACE H Urine Ascorbic Acid 20 H Discharge - Discharge Clinical Impression: Ruptured cyst of ovary, Bacterial vaginosis Condition: Stable Disposition: HOME, SELF-CARE Instructions: Ovarian Cyst ([facility]), Vaginosis, Bacterial ([facility]) Additional Instructions: Even evaluated for vaginal bleeding. Your right ovary appears to have had a ruptured hemorrhagic cyst. Your vital signs are stable. Your labs are unremarkable. You are also being treated for bacterial vaginosis. I prescribed you medication. Please take instructed. Please do not drink on this medication. Recommend that you follow-up with your primary care provider if symptoms persist. Also recommend you return to the emergency department if your symptoms worsen or you develop new symptoms. Prescriptions: Metronidazole [Flagyl 500 mg Tablet] 500 mg PO Q12 #14 tablet
[2019-08-15 18:43] LABS: BACTERIA (WET MOUNT) 3+ BACTERIA SEEN; EPITHELIALS (WET MOUNT) 3+ EPITHELIALS SEEN; RBCS (WET MOUNT) 2+ RBCS SEEN; T.VAGINALIS (WET MOUNT) TRICHOMONAS SEEN; WBCS (WET MOUNT) 2+ WBCS SEEN; YEAST (WET MOUNT) NO YEAST SEEN
[2019-08-15 19:06] VITALS: BP 111/64
[2019-08-15 20:14] LABS: CHLAM PCR NOT DETECTED (NOT DETECT)
== END 2019-08-15 19:06 | disposition home or self-care (01) ==
LOC: ER 12:41
DX: N83.209 Unspecified ovarian cyst, unspecified side (principal); N76.0 Acute vaginitis; B96.89 Other specified bacterial agents as the cause of diseases classified elsewhere; N93.9 Abnormal uterine and vaginal bleeding, unspecified; F17.200 Nicotine dependence, unspecified, uncomplicated; F12.10 Cannabis abuse, uncomplicated; K29.70 Gastritis, unspecified, without bleeding; Z79.899 Other long term (current) drug therapy; Z88.8 Allergy status to other drugs, medicaments and biological substances; Z88.1 Allergy status to other antibiotic agents
CPT/HCPCS: 36415; 76856; 80053; 81001; 81025; 83690; 84702; 85025; 87210; 87491; 87591; 93976; 99284